=== PATIENT | female | born 1950 | race Caucasian/White ===

== ENCOUNTER 2019-12-01 10:27 | Emergency (ER) | payer MEDICARE, BC ==
[~2019-12-01] VITALS: Ht 170.2 cm; Wt 72.6 kg
[2019-12-01] MEDS ORDERED: LOSARTAN POTASS50 MG PO (10:41)
[2019-12-01] MEDS ORDERED: FLUTICASONE PRO16 GM NAS (10:41)
[2019-12-01] MEDS ORDERED: ALENDRONATE SOD70 MG PO (10:41)
[2019-12-01] MEDS ORDERED: LEVOTHYROXINE75 MCG PO (10:41)
[2019-12-01] MEDS ORDERED: HYDROCHLOROTH12.5 MG PO (10:41)
[2019-12-01] MEDS ORDERED: ONDANSETRON ODT8 MG PO (11:40)
--- NOTE | 2019-12-01 14:27 | EKG ---
[facility] [address] [place], [place] [address] Signed Normal sinus rhythm with sinus arrhythmia Nonspecific ST abnormality Abnormal ECG No previous ECGs available Confirmed by LETY YOUNG DO ([id number]) on 12/01/2019 2:27:11 PM Electronically Signed By: LETY YOUNG DO 12/01/19 1427 PATIENT NAME: ANA PHOENIX Electrocardiogram DATE OF : 50 PHYSICIAN: LETY YOUNG DO REPORT #: [id number] REPORT IS CONFIDENTIAL AND NOT TO BE RELEASED WITHOUT AUTHORIZATION
== END 2019-12-01 11:52 | disposition home or self-care (01) ==
LOC: ED 10:27
DX: R07.89 Other chest pain (principal); R11.0 Nausea; I10 Essential (primary) hypertension; Z79.899 Other long term (current) drug therapy
CPT/HCPCS: 80053; 83690; 83735; 84484; 85025; 93005; 93010; 99285-25